=== PATIENT | male | born 1940 | race Caucasian/White ===

== ENCOUNTER 2017-05-17 17:31 | Emergency (ER) | payer MEDICARE, BC ==
--- NOTE | 2017-05-17 18:11 | ED ---
Abdominal Pain HPI - General Chief Complaint: Abdominal Pain Stated Complaint: abd pain Time Seen by Provider: 05/17/17 17:48 Source: patient, RN notes reviewed Mode of arrival: ambulatory Limitations: altered mental status - History of Present Illness Initial Comments: Patient is a 77-year-old male presents to the emergency room for evaluation of abdominal pain. Patient's son is present with patient. Patient's son states the patient hasn't been to a physician about 5 years. Patient's son states the patient has been complaining of abdominal pain for the past few weeks. Patient' s son states that patient does have a very poor diet. Patient's son states that patient sometimes has 5 klondyke bars in one day. Patient denies nausea or vomiting. Patient denies constipation or diarrhea. Patient states he had a normal bowel movement earlier today. Patient denies fevers or chills. Patient denies headache or dizziness. Patient's chest pain or shortness of breath. Patient denies history of abdominal surgeries. Patient denies new foods. Patient denies pain or burning during urination, trouble urinating or blood in urine. - Related Data Home Medications Medication Instructions Recorded Confirmed Aspirin 325 - 650 mg PO Q6H PRN 05/17/17 05/17/17 Calcium Carbonate [Tums] 500 - 1,000 mg PO Q6H PRN 05/17/17 05/17/17 Previous Rx's Medication Instructions Recorded Ondansetron Odt [Zofran Odt] 4 mg PO Q8HR PRN #12 tab 05/17/17 Allergies Allergy/AdvReac Type Severity Reaction Status Date / Time No Known Allergies Allergy Verified 05/17/17 18:33 Review of Systems ROS Statement: Those systems with pertinent positive or pertinent negative responses have been documented in the HPI. ROS Other: All systems not noted in ROS Statement are negative. Past Medical History Past Medical History: Memory Impairment Additional Past Medical History / Comment(s): psoriasis History of Any Multi-Drug Resistant Organisms: None Reported Past Surgical History: No Surgical Hx Reported Past Psychological History: No Psychological Hx Reported Smoking Status: Former smoker Past Alcohol Use History: None Reported Past Drug Use History: None Reported General Exam - General Exam Comments Initial Comments: laying in exam room, no acute distress. Limitations: altered mental status General appearance: alert, in no apparent distress Head exam: Present: atraumatic, normocephalic, normal inspection Eye exam: Present: normal appearance ENT exam: Present: normal exam Neck exam: Present: normal inspection Respiratory exam: Present: normal lung sounds bilaterally. Absent: respiratory distress Cardiovascular Exam: Present: regular rate, normal rhythm, normal heart sounds GI/Abdominal exam: Present: soft, tenderness (mild RLQ/LLQ), normal bowel sounds. Absent: distended, guarding, rebound, rigid Extremities exam: Present: normal inspection Back exam: Present: normal inspection Neurological exam: Present: alert, oriented X3, CN II-XII intact Psychiatric exam: Present: normal affect, normal mood Skin exam: Present: warm, dry, intact, normal color. Absent: rash Course Vital Signs 05/17/17 05/17/17 17:40 18:49 Temperature 97.8 F Pulse Rate 78 68 Respiratory 18 20 Rate Blood Pressure 160/76 170/75 O2 Sat by Pulse 96 98 Oximetry Medical Decision Making - Medical Decision Making patient is 77-year-old male presents to the emergency room for evaluation of abdominal pain. Patient has has this pain for the past few months but slightly worsened today. KUB x-ray significant for constipation. Patient given milk of molasses enema with slight relief of symptoms. Patient will be sent home with magnesium citrate. Patient advised to drink plenty of water. Patient advised to follow-up with a primary care provider. Return parameters discussed. Case discussed Dr. Hoang. - Lab Data Result diagrams: 05/17/17 18:00 05/17/17 18:00 Lab Results 05/17/17 05/17/17 05/17/17 Range/Units 18:00 18:00 18:00 WBC 8.1 (3.8-10.6) k/uL RBC 5.14 (4.30-5.90) m/uL Hgb 9.2 L (13.0-17.5) gm/dL Hct 33.3 L (39.0-53.0) % MCV 64.7 L (80.0-100.0) fL MCH 17.9 L (25.0-35.0) pg MCHC 27.7 L (31.0-37.0) g/dL RDW 18.0 H (11.5-15.5) % Plt Count 319 (150-450) k/uL Neutrophils % 68 % Lymphocytes % 15 % Monocytes % 7 % Eosinophils % 5 % Basophils % 1 % Neutrophils # 5.5 (1.3-7.7) k/uL Lymphocytes # 1.2 (1.0-4.8) k/uL Monocytes # 0.6 (0-1.0) k/uL Eosinophils # 0.4 (0-0.7) k/uL Basophils # 0.1 (0-0.2) k/uL Hypochromasia Marked Poikilocytosis Slight Anisocytosis Slight Microcytosis Marked Sodium 134 L (137-145) mmol/L Potassium 4.3 (3.5-5.1) mmol/L Chloride 102 (98-107) mmol/L Carbon Dioxide 24 (22-30) mmol/L Anion Gap 8 mmol/L BUN 12 (9-20) mg/dL Creatinine 0.78 (0.66-1.25) mg/dL Est GFR (MDRD) Af Amer >60 (>60 ml/min/1.73 sqM) Est GFR (MDRD) Non-Af >60 (>60 ml/min/1.73 sqM) Glucose 102 H (74-99) mg/dL Calcium 8.2 L (8.4-10.2) mg/dL Total Bilirubin 0.4 (0.2-1.3) mg/dL AST 38 (17-59) U/L ALT 28 (21-72) U/L Alkaline Phosphatase 103 (38-126) U/L Total Protein 6.7 (6.3-8.2) g/dL Albumin 3.2 L (3.5-5.0) g/dL Amylase 78 (30-110) U/L Lipase 147 (23-300) U/L Urine Color Urine Appearance (Clear) Urine pH (5.0-8.0) Ur Specific [place] (1.001-1.035) Urine Protein (Negative) Urine Glucose (UA) (Negative) Urine Ketones (Negative) Urine Blood (Negative) Urine Nitrite (Negative) Urine Bilirubin (Negative) Urine Urobilinogen (<2.0) mg/dL Ur Leukocyte Esterase (Negative) 05/17/17 Range/Units 18:30 WBC (3.8-10.6) k/uL RBC (4.30-5.90) m/uL Hgb (13.0-17.5) gm/dL Hct (39.0-53.0) % MCV (80.0-100.0) fL MCH (25.0-35.0) pg MCHC (31.0-37.0) g/dL RDW (11.5-15.5) % Plt Count (150-450) k/uL Neutrophils % % Lymphocytes % % Monocytes % % Eosinophils % % Basophils % % Neutrophils # (1.3-7.7) k/uL Lymphocytes # (1.0-4.8) k/uL Monocytes # (0-1.0) k/uL Eosinophils # (0-0.7) k/uL Basophils # (0-0.2) k/uL Hypochromasia Poikilocytosis Anisocytosis Microcytosis Sodium (137-145) mmol/L Potassium (3.5-5.1) mmol/L Chloride (98-107) mmol/L Carbon Dioxide (22-30) mmol/L Anion Gap mmol/L BUN (9-20) mg/dL Creatinine (0.66-1.25) mg/dL Est GFR (MDRD) Af Amer (>60 ml/min/1.73 sqM) Est GFR (MDRD) Non-Af (>60 ml/min/1.73 sqM) Glucose (74-99) mg/dL Calcium (8.4-10.2) mg/dL Total Bilirubin (0.2-1.3) mg/dL AST (17-59) U/L ALT (21-72) U/L Alkaline Phosphatase (38-126) U/L Total Protein (6.3-8.2) g/dL Albumin (3.5-5.0) g/dL Amylase (30-110) U/L Lipase (23-300) U/L Urine Color Light Yellow Urine Appearance Clear (Clear) Urine pH 6.0 (5.0-8.0) Ur Specific [place] 1.010 (1.001-1.035) Urine Protein Negative (Negative) Urine Glucose (UA) Negative (Negative) Urine Ketones Negative (Negative) Urine Blood Negative (Negative) Urine Nitrite Negative (Negative) Urine Bilirubin Negative (Negative) Urine Urobilinogen <2.0 (<2.0) mg/dL Ur Leukocyte Esterase Negative (Negative) - Radiology Data Radiology results: report reviewed, image reviewed Disposition Clinical Impression: Constipation, Abdominal pain Disposition: HOME SELF-CARE Condition: Good Instructions: Constipation (ED), High Fiber Diet (ED), Abdominal Pain (ED) Additional Instructions: Take magnesium citrate. Drink plenty of water. Take Zofran as needed for nausea. Please follow up with primary care provider in 1-2 days for reevaluation. If any new symptom arises or symptoms worsen, return to ER as soon as possible. Prescriptions: Ondansetron Odt [Zofran Odt] 4 mg PO Q8HR PRN #12 tab PRN Reason: Nausea Referrals: Farideh Ohara MD [STAFF PHYSICIAN] - 1-2 days Time of Disposition: 19:59
[2017-05-17 18:21] LABS: Anisocytosis Slight; Basophils # (A) 0.1 k/uL (0-0.2); Basophils % (A) 1 %; CH 17.4; CHCM 27.2; Eosinophils # (A) 0.4 k/uL (0-0.7); Eosinophils % (A) 5 %; HCT 33.3 % (39.0-53.0); HDW 3.48; HGB 9.2 gm/dL (13.0-17.5); Hypochromasia Marked; Luc # (Auto) 0.34; Luc % (Auto) 4; Lymphocytes # (A) 1.2 k/uL (1.0-4.8); Lymphocytes % (A) 15 %; MCH 17.9 pg (25.0-35.0); MCHC 27.7 g/dL (31.0-37.0); MCV 64.7 fL (80.0-100.0); Mean Platelet Volume 6.9; Microcytosis Marked; Monocytes # (A) 0.6 k/uL (0-1.0); Monocytes % (A) 7 %; Neutrophils # (A) 5.5 k/uL (1.3-7.7); Neutrophils % (A) 68 %; Poikilocytosis Slight; RBC 5.14 m/uL (4.30-5.90); WBC 8.1 k/uL (3.8-10.6); WBC (Perox) 8.07
--- NOTE | 2017-05-17 18:27 | XR ---
EXAMINATION TYPE: XR KUB DATE OF EXAM: 05/17/2017 6:22 PM CLINICAL HISTORY: Right lower quadrant pain. TECHNIQUE: 2 upright KUB images of the abdomen are obtained. COMPARISON: None. FINDINGS: There is some paucity of bowel gas. Visualized gas is noted in nondistended small bowel loo ps. Gas and fecal material is seen in nondistended colon along the periphery. Calcifications scattere d throughout the slightly prominent spleen are noted. There are right infrahilar calcified nodules an d a few calcifications scattered throughout the liver. Findings are consistent with product of old gr anulomatous disease. There is cardiomegaly. No pneumoperitoneum is seen. IMPRESSION: Overall nonspecific but favor nonobstructive bowel gas pattern. Evidence of old granulomatous disease noted.
[2017-05-17 18:34] LABS: ALT 28 U/L (21-72); AST 38 U/L (17-59); Alkaline Phosphatase 103 U/L (38-126); Amylase 78 U/L (30-110); Anion Gap 8 mmol/L; Blood Urea Nitrogen 12 mg/dL (9-20); Calcium 8.2 mg/dL (8.4-10.2); Carbon Dioxide 24 mmol/L (22-30); Chloride 102 mmol/L (98-107); Glucose 102 mg/dL (74-99); Non-African American GFR(MDRD) >60 (>60 ml/min/1.73 sqM); Potassium 4.3 mmol/L (3.5-5.1); Sodium 134 mmol/L (137-145); Total Bilirubin 0.4 mg/dL (0.2-1.3); Total Protein 6.7 g/dL (6.3-8.2)
[2017-05-17 19:16] LABS: Appearance,Urine Clear (Clear); Bilirubin,Urine Negative (Negative); Glucose,Urine (UA) Negative (Negative); Ketones,Urine Negative (Negative); Leukocyte Esterase,Urine Negative (Negative); Nitrite,Urine Negative (Negative); Protein,Urine Negative (Negative); UA Billing (MACRO vs. MICRO) CHEM; Urobilinogen,Urine <2.0 mg/dL (<2.0)
[2017-05-17] MEDS ORDERED: ONDANSETRON 4 MG/2 ML VIAL IVP STA (19:47)
[2017-05-17] MEDS ORDERED: MAGNESIUM CITRATE 296 ML BOTTLE PO ONE (19:58)
[2017-05-17 20:21] VITALS: BP 172/70; PULSE 74; RESP 18; TEMP 98
== END 2017-05-17 20:20 | disposition home or self-care (01) ==
LOC: EC 17:31
DX: K59.00 Constipation, unspecified (principal); R10.31 Right lower quadrant pain; R10.32 Left lower quadrant pain; Z87.891 Personal history of nicotine dependence
CPT/HCPCS: 36415; 80053; 82150; 83690; 85025; 81003; 74000; 99284; 96374; G0103; J2405

== ENCOUNTER → 2017-06-06 | Outpatient (CLI) | payer MEDICARE, BC ==
[2017-06-06 15:28] LABS: Anisocytosis Slight; Basophils % (A) 0 %; CH 17.7; Eosinophils # (A) 0.2 k/uL (0-0.7); Eosinophils % (A) 4 %; HCT 34.2 % (39.0-53.0); HDW 3.38; HGB 9.4 gm/dL (13.0-17.5); Hypochromasia Marked; Luc # (Auto) 0.27; Luc % (Auto) 4; Lymphocytes # (A) 1.3 k/uL (1.0-4.8); Lymphocytes % (A) 19 %; MCH 18.2 pg (25.0-35.0); MCHC 27.5 g/dL (31.0-37.0); MCV 66.2 fL (80.0-100.0); Mean Platelet Volume 6.7; Microcytosis Marked; Monocytes # (A) 0.5 k/uL (0-1.0); Monocytes % (A) 8 %; Neutrophils # (A) 4.5 k/uL (1.3-7.7); Neutrophils % (A) 66 %; RBC 5.17 m/uL (4.30-5.90); WBC 6.9 k/uL (3.8-10.6); WBC (Perox) 6.54
[2017-06-06 15:46] LABS: ALT 26 U/L (21-72); AST 35 U/L (17-59); Alkaline Phosphatase 107 U/L (38-126); Anion Gap 11 mmol/L; Blood Urea Nitrogen 12 mg/dL (9-20); Calcium 8.6 mg/dL (8.4-10.2); Carbon Dioxide 25 mmol/L (22-30); Chloride 102 mmol/L (98-107); Glucose 129 mg/dL (74-99); Iron 18 ug/dL (49-181); Non-African American GFR(MDRD) >60 (>60 ml/min/1.73 sqM); Potassium 4.6 mmol/L (3.5-5.1); Sodium 138 mmol/L (137-145); Total Bilirubin 0.4 mg/dL (0.2-1.3); Total Protein 6.9 g/dL (6.3-8.2)
[2017-06-06 15:55] LABS: % Iron Saturation 3.9 % (20-50); Total Iron Binding Capacity 459 ug/dL (261-462)
--- NOTE | 2017-06-06 17:06 | CT ---
EXAMINATION TYPE: CT abdomen pelvis w con DATE OF EXAM: 06/06/2017 COMPARISON: NONE HISTORY: Patient complains of right groin pain and swollen scrotum. CT DLP: 831.9 mGycm Automated exposure control for dose reduction was used. TECHNIQUE: Helical acquisition of images was performed from the lung bases through the pelvis. CONTRAST: Performed with Oral Contrast and with IV Contrast, patient injected with 100 mL of Omnipaque 300. FINDINGS: There is coarse interstitial patchy infiltrate at the lung bases. Heart is enlarged. There is a dense ly calcified granulomata at the right pulmonary hilum. There is no pleural effusion. There are calcif ied multiple splenic granulomata. There are numerous small calcified hepatic granulomata. There is no sign of pancreatic mass. Bile alannah ts are not dilated. There are small calcified gallstones. There is no adrenal mass. Kidneys show satisfactory contrast opacification. There is no hydronephrosi s. There is no retroperitoneal adenopathy. Abdominal aorta is atheromatous. There is no ascites. Appe ndix appears normal. I see no intestinal wall thickening. There is a right inguinal hernia that conta ins some multiple small bowel loops. There are hernia extends well into the scrotum. There is no sign of a bowel obstruction. The hernia opening is 3.5 cm. Bladder distends smoothly. I see no pelvic mas s. I see no bony destructive process. IMPRESSION: EXTENSIVE HEALED GRANULOMATOUS DISEASE. CARDIOMEGALY. 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 I DO NOT SEE PLEURAL FLUID TO SUGGEST HEART FAILURE. LARGE RIGHT INGUINAL HERNIA CONTAINING SMALL BOWEL. NO EVIDENCE OF BOWEL OBSTRUCTION. CHOLELITHIASIS. NO SIGN OF APPENDICITIS.
== END | disposition home or self-care (01) ==
LOC: RADCTMAIN 14:46
PROVIDERS: ATTEND Surgery
DX: I51.7 Cardiomegaly (principal); K40.90 Unilateral inguinal hernia, without obstruction or gangrene, not specified as recurrent; R91.8 Other nonspecific abnormal finding of lung field; K80.20 Calculus of gallbladder without cholecystitis without obstruction
CPT/HCPCS: 80053; 83540; 83550; 85025; 74177; 36415; Q9967

== ENCOUNTER → 2017-06-06 | Outpatient (CLI) | payer MEDICARE, BC | LOC: LABWHC1 12:48 | PROVIDERS: ATTEND Internal Medicine | DX: Z53.9 Procedure and treatment not carried out, unspecified reason (principal) ==

== ENCOUNTER → 2017-06-09 | Outpatient (CLI) | payer MEDICARE, BC ==
--- NOTE | 2017-06-09 17:13 | P.STRESS ---
- Stress Test Note Stress Test Results/Findings: Exam Performed: stress test Exam Date: 06/09/17 Reason for Exam: Pre op Height: 5 ft 10 in Weight: 81.647 kg Protocol: Jose Miguel Stage: 1 Duration of Exercise: 3:09 Resting Heart Rate: 60 Resting Blood Pressure: 162/72 Maximum Achieved Heart Rate: 119 Maximum Achieved Blood Pressure: 205/72 85% PMHR: 121 100% PMHR: 142 METS: 4.6 Technologist Comment: Stress Test Results/Findings: Resting EKG shows a normal sinus rhythm with normal NJ interval and QRS duration and normal ST-T abuse. This segment depression suggestive ischemia is noted. Isolated PVCs and occasional ventricular couplets were noted. And did not complain of any anginal pain during the test. Final impression the stress electrocardiogram is not suggestive ischemia. Patient's exercise tolerance is average. Occasional PVCs and occasional ventricular couplets were noted. Patient did not complain of any anginal pain during the test.
--- NOTE | 2017-06-10 07:52 | EST ---
Stress Test Results/Findings: Exam Performed: stress test Exam Date: 06/09/17 Reason for Exam: Pre op Height: 5 ft 10 in Weight: 81.647 kg Protocol: Jose Miguel Stage: 1 Duration of Exercise: 3:09 Resting Heart Rate: 60 Resting Blood Pressure: 162/72 Maximum Achieved Heart Rate: 119 Maximum Achieved Blood Pressure: 205/72 85% PMHR: 121 100% PMHR: 142 METS: 4.6 Technologist Comment: Stress Test Results/Findings: Resting EKG shows a normal sinus rhythm with normal RI interval and QRS duration and normal ST-T abuse. This segment depression suggestive ischemia is noted. Isolated PVCs and occasional ventricular couplets were noted. And did not complain of any anginal pain during the test. Final impression the stress electrocardiogram is not suggestive ischemia. Patient's exercise tolerance is average. Occasional PVCs and occasional ventricular couplets were noted. Patient did not complain of any anginal pain during the test. KAREN
== END ==
LOC: RADNMMAIN 11:03
PROVIDERS: ATTEND Internal Medicine
DX: Z01.810 Encounter for preprocedural cardiovascular examination (principal)
CPT/HCPCS: 93017

== ENCOUNTER 2017-11-20 20:35 | Inpatient (IN) | payer MEDICARE, BC ==
[2017-11-20] MEDS ORDERED: RX INFO: IV CONTRAST WAS GIVEN 1 EACH MISC MISCELLANE PRN (21:39)
[2017-11-20 22:02] LABS: Anisocytosis Moderate; Basophils % (A) 0 %; Eosinophils # (A) 0.2 k/uL (0-0.7); Eosinophils % (A) 1 %; HCT 42.7 % (39.0-53.0); HGB 13.1 gm/dL (13.0-17.5); Hypochromasia Moderate; Lymphocytes # (A) 0.7 k/uL (1.0-4.8); Lymphocytes % (A) 6 %; MCH 23.2 pg (25.0-35.0); MCHC 30.6 g/dL (31.0-37.0); Mean Platelet Volume 7.9; Microcytosis Moderate; Monocytes # (A) 0.5 k/uL (0-1.0); Monocytes % (A) 4 %; Neutrophils # (A) 10.6 k/uL (1.3-7.7); Neutrophils % (A) 87 %; Platelet Count 225 k/uL (150-450); RBC 5.62 m/uL (4.30-5.90); WBC 12.2 k/uL (3.8-10.6)
[2017-11-20 22:11] LABS: Partial Thromboplastin Time 22.7 sec (22.0-30.0); Prothrombin Time 9.8 sec (9.0-12.0)
[2017-11-20 22:20] LABS: ALT 37 U/L (21-72); AST 32 U/L (17-59); Albumin 3.3 g/dL (3.5-5.0); Alkaline Phosphatase 104 U/L (38-126); Amylase 91 U/L (30-110); Anion Gap 10 mmol/L; Blood Urea Nitrogen 12 mg/dL (9-20); Calcium 8.9 mg/dL (8.4-10.2); Carbon Dioxide 25 mmol/L (22-30); Chloride 103 mmol/L (98-107); Glucose 142 mg/dL (74-99); Lipase 83 U/L (23-300); Potassium 4.3 mmol/L (3.5-5.1); Sodium 138 mmol/L (137-145); Total Bilirubin 0.3 mg/dL (0.2-1.3); Total Protein 6.8 g/dL (6.3-8.2)
--- NOTE | 2017-11-20 22:37 | ED ---
Abdominal Pain HPI - General Chief Complaint: Abdominal Pain Stated Complaint: Abd Pain Time Seen by Provider: 11/20/17 21:32 Source: patient, family, RN notes reviewed, old records reviewed Mode of arrival: ambulatory Limitations: no limitations - History of Present Illness Initial Comments: 69-year-old male presents today chief complaint of lower right lower quadrant abdominal pain. He has history of a large hernia. He reports he started to have an onset of pain this evening after he was eating his food. Patient states that he's had normal bowel movements and normal urination. He was supposed to have the hernia repaired by Dr. Mcgraw. Patient son reports that he became concerned about this with his primary care physician and he ended up canceling the surgery. Patient has a history of memory impairment. - Related Data Home Medications Medication Instructions Recorded Confirmed Latanoprost [Xalatan 0.005%] 1 drop BOTH EYES HS 11/20/17 11/20/17 Allergies Allergy/AdvReac Type Severity Reaction Status Date / Time No Known Allergies Allergy Verified 11/20/17 22:09 Review of Systems ROS Statement: Those systems with pertinent positive or pertinent negative responses have been documented in the HPI. ROS Other: All systems not noted in ROS Statement are negative. Past Medical History Past Medical History: COPD, Memory Impairment Additional Past Medical History / Comment(s): psoriasis,anemia History of Any Multi-Drug Resistant Organisms: None Reported Past Surgical History: No Surgical Hx Reported Past Psychological History: No Psychological Hx Reported Smoking Status: Former smoker Past Alcohol Use History: None Reported Past Drug Use History: None Reported General Exam - General Exam Comments Initial Comments: His is a 77-year-old male. No distress. Limitations: no limitations General appearance: alert, in no apparent distress Head exam: Present: atraumatic, normocephalic, normal inspection Eye exam: Present: normal appearance, PERRL, EOMI. Absent: scleral icterus, conjunctival injection, periorbital swelling ENT exam: Present: normal exam, mucous membranes moist Neck exam: Present: normal inspection. Absent: tenderness, meningismus, lymphadenopathy Respiratory exam: Present: normal lung sounds bilaterally. Absent: respiratory distress, wheezes, rales, rhonchi, stridor Cardiovascular Exam: Present: regular rate, normal rhythm, normal heart sounds. Absent: systolic murmur, diastolic murmur, rubs, gallop, clicks GI/Abdominal exam: Present: soft, tenderness (patient has tenderness over the right lower quadrant, is very large hernia noted in the right lower quadrant suprapubic area.), normal bowel sounds, hernia. Absent: distended, guarding, rebound, rigid Extremities exam: Present: normal inspection, full ROM, normal capillary refill. Absent: tenderness, pedal edema, joint swelling, calf tenderness Back exam: Present: normal inspection Neurological exam: Present: alert, oriented X3, CN II-XII intact Psychiatric exam: Present: normal affect, normal mood Skin exam: Present: warm, dry, intact, normal color. Absent: rash Course Vital Signs 11/20/17 20:58 Temperature 97.0 F L Pulse Rate 66 Respiratory 16 Rate Blood Pressure 126/65 O2 Sat by Pulse 96 Oximetry Medical Decision Making - Medical Decision Making This is a 77-year-old male presents today chief complaint of lower abdominal pain. Patient has a history of a severe hernia and his rate or quadrant. Uterus reports is most to have this repaired a few months ago but then backed out of the surgery. Patient reports that he is increasingly worse for the past few hours. Patient does have a very large hernia. Patient is given IV fluids labwork obtained. Patient's given a CT. CT shows evidence of an incarcerated hernia with this mechanical small bowel obstruction. Patient will remain nothing by mouth at this time. Patient will be started on maintenance fluids. Patient's case is discussed with Dr. Larson. He discussed this with the on-call surgeon Dr. Borges. Odalis the patient to Dr. Borges with consult to medicine. - Lab Data Result diagrams: 11/20/17 21:51 11/20/17 21:51 Lab Results 11/20/17 11/20/17 11/20/17 Range/Units 21:51 21:51 21:51 WBC 12.2 H (3.8-10.6) k/uL RBC 5.62 (4.30-5.90) m/uL Hgb 13.1 (13.0-17.5) gm/dL Hct 42.7 (39.0-53.0) % MCV 76.0 L (80.0-100.0) fL MCH 23.2 L (25.0-35.0) pg MCHC 30.6 L (31.0-37.0) g/dL RDW 21.0 H (11.5-15.5) % Plt Count 225 (150-450) k/uL Neutrophils % 87 % Lymphocytes % 6 % Monocytes % 4 % Eosinophils % 1 % Basophils % 0 % Neutrophils # 10.6 H (1.3-7.7) k/uL Lymphocytes # 0.7 L (1.0-4.8) k/uL Monocytes # 0.5 (0-1.0) k/uL Eosinophils # 0.2 (0-0.7) k/uL Basophils # 0.0 (0-0.2) k/uL Hypochromasia Moderate Anisocytosis Moderate Microcytosis Moderate PT (9.0-12.0) sec INR (<1.2) APTT (22.0-30.0) sec Sodium 138 (137-145) mmol/L Potassium 4.3 (3.5-5.1) mmol/L Chloride 103 (98-107) mmol/L Carbon Dioxide 25 (22-30) mmol/L Anion Gap 10 mmol/L BUN 12 (9-20) mg/dL Creatinine 0.80 (0.66-1.25) mg/dL Est GFR (MDRD) Af Amer >60 (>60 ml/min/1.73 sqM) Est GFR (MDRD) Non-Af >60 (>60 ml/min/1.73 sqM) Glucose 142 H (74-99) mg/dL Plasma Lactic Acid Stuart 1.1 (0.7-2.0) mmol/L Calcium 8.9 (8.4-10.2) mg/dL Total Bilirubin 0.3 (0.2-1.3) mg/dL AST 32 (17-59) U/L ALT 37 (21-72) U/L Alkaline Phosphatase 104 (38-126) U/L Total Protein 6.8 (6.3-8.2) g/dL Albumin 3.3 L (3.5-5.0) g/dL Amylase 91 (30-110) U/L Lipase 83 (23-300) U/L Urine Color Urine Appearance (Clear) Urine pH (5.0-8.0) Ur Specific [place] (1.001-1.035) Urine Protein (Negative) Urine Glucose (UA) (Negative) Urine Ketones (Negative) Urine Blood (Negative) Urine Nitrite (Negative) Urine Bilirubin (Negative) Urine Urobilinogen (<2.0) mg/dL Ur Leukocyte Esterase (Negative) 11/20/17 11/20/17 Range/Units 21:51 22:30 WBC (3.8-10.6) k/uL RBC (4.30-5.90) m/uL Hgb (13.0-17.5) gm/dL Hct (39.0-53.0) % MCV (80.0-100.0) fL MCH (25.0-35.0) pg MCHC (31.0-37.0) g/dL RDW (11.5-15.5) % Plt Count (150-450) k/uL Neutrophils % % Lymphocytes % % Monocytes % % Eosinophils % % Basophils % % Neutrophils # (1.3-7.7) k/uL Lymphocytes # (1.0-4.8) k/uL Monocytes # (0-1.0) k/uL Eosinophils # (0-0.7) k/uL Basophils # (0-0.2) k/uL Hypochromasia Anisocytosis Microcytosis PT 9.8 (9.0-12.0) sec INR 1.0 (<1.2) APTT 22.7 (22.0-30.0) sec Sodium (137-145) mmol/L Potassium (3.5-5.1) mmol/L Chloride (98-107) mmol/L Carbon Dioxide (22-30) mmol/L Anion Gap mmol/L BUN (9-20) mg/dL Creatinine (0.66-1.25) mg/dL Est GFR (MDRD) Af Amer (>60 ml/min/1.73 sqM) Est GFR (MDRD) Non-Af (>60 ml/min/1.73 sqM) Glucose (74-99) mg/dL Plasma Lactic Acid [place] (0.7-2.0) mmol/L Calcium (8.4-10.2) mg/dL Total Bilirubin (0.2-1.3) mg/dL AST (17-59) U/L ALT (21-72) U/L Alkaline Phosphatase (38-126) U/L Total Protein (6.3-8.2) g/dL Albumin (3.5-5.0) g/dL Amylase (30-110) U/L Lipase (23-300) U/L Urine Color Yellow Urine Appearance Clear (Clear) Urine pH 5.5 (5.0-8.0) Ur Specific [place] 1.012 (1.001-1.035) Urine Protein Negative (Negative) Urine Glucose (UA) Negative (Negative) Urine Ketones 1+ H (Negative) Urine Blood Negative (Negative) Urine Nitrite Negative (Negative) Urine Bilirubin Negative (Negative) Urine Urobilinogen <2.0 (<2.0) mg/dL Ur Leukocyte Esterase Negative (Negative) - Radiology Data Radiology results: report reviewed There are bilateral lower lobe pulmonary infiltrates that are increased compared to last exam. There is basilar pulmonary interstitial fibrosis. Cardiomegaly noted. There is an incarcerated right sided scrotal hernia containing small bowel. There is evidence of a mechanical small bowel obstruction related to the hernia. The obstruction is new compared to old computed tomography scan. Hernia size is slightly increased. Disposition Clinical Impression: Small bowel obstruction, Incarcerated hernia Disposition: ADMITTED IP TO THIS [facility] Condition: Good Referrals: Altaf Silva MD [Primary Care Provider] - 1-2 days Time of Disposition: 23:41
[2017-11-20 22:39] LABS: Appearance,Urine Clear (Clear); Bilirubin,Urine Negative (Negative); Blood,Urine Negative (Negative); Color,Urine Yellow; Glucose,Urine (UA) Negative (Negative); Ketones,Urine 1+ (Negative); Leukocyte Esterase,Urine Negative (Negative); Nitrite,Urine Negative (Negative); PH, Urine 5.5 (5.0-8.0); Protein,Urine Negative (Negative); Specific Gravity,Urine 1.012 (1.001-1.035); Urobilinogen,Urine <2.0 mg/dL (<2.0)
--- NOTE | 2017-11-20 23:17 | CT ---
EXAMINATION TYPE: CT abdomen pelvis w con DATE OF EXAM: 11/20/2017 COMPARISON: 06/06/2017 HISTORY: Abd pain with nausea and vomiting. CT DLP: 878.1 mGycm Automated exposure control for dose reduction was used. TECHNIQUE: Helical acquisition of images was performed from the lung bases through the pelvis. CONTRAST: Performed without Oral Contrast and with IV Contrast, patient injected with 100ml mL of Omnipaque 300 . FINDINGS: There is patchy infiltrate at the posterior lung bases. Heart is enlarged. There is no pleural effusi on. There are multiple calcified splenic granulomata. Liver shows no focal defect. There are calcified ga llstones at the gallbladder neck. Bile ducts are not dilated. There is no sign of a pancreatic mass. There is no adrenal mass. Kidneys show satisfactory contrast opacification. There is no hydronephrosi s. There is no retroperitoneal adenopathy. There is no ascites. There are multiple dilated small hellen l loops in the lower abdomen. There is a large right-sided incarcerated scrotal hernia that contains dilated small bowel. The lower extent of the hernia is a not demonstrated on this exam. The bladder d istends smoothly. Small bowel measures up to 3.5 cm. I see no bony destructive process. The terminal ileum has normal diameter. IMPRESSION: THERE ARE BILATERAL LOWER LOBE PULMONARY INFILTRATES THAT ARE INCREASED COMPARED TO LAST EXAM. THERE IS BASILAR PULMONARY INTERSTITIAL FIBROSIS. CARDIOMEGALY. THERE IS INCARCERATED RIGHT SIDE SCROTAL HERNIA THAT CONTAINS SMALL BOWEL. THERE IS EVIDENCE OF A MEC HANICAL SMALL BOWEL OBSTRUCTION RELATED TO THE HERNIA. THE OBSTRUCTION IS NEW COMPARED TO OLD CT SCAN . THE HERNIA SIZE IS SLIGHTLY INCREASED.
[2017-11-20] MEDS ORDERED: SODIUM CHLORIDE 0.9% 1,000 ML IV ONE (23:26)
[2017-11-20] MEDS ORDERED: ONDANSETRON 4 MG/2 ML VIAL IVP PRN (23:42)
[2017-11-20] MEDS ORDERED: MORPHINE SULFATE 5 MG/ML SYRINGE IV PRN (23:42)
[2017-11-20] MEDS ORDERED: NALOXONE 0.4 MG/ML 1 ML VIAL IV PRN (23:42)
[2017-11-20] MEDS ORDERED: ACETAMINOPHEN TAB 325 MG TAB PO PRN (23:42)
[2017-11-20] MEDS ORDERED: IBUPROFEN 400 MG TAB PO PRN (23:42)
[2017-11-21] MEDS: HYDROmorphone 0.5 MG/0.5 ML SYRINGE IVP PRN ×4 (00:19→20:10)
[2017-11-21] MEDS: SODIUM CHLORIDE 0.9% 1,000 ML IV SCH ×3 (02:04→19:50)
--- NOTE | 2017-11-21 08:10 | P.CONS ---
History of Present Illness - Reason for Consult Consult date: 11/21/17 small bowel obstruction Requesting physician: Tylor Borges - Chief Complaint abdominal pain - History of Present Illness Is a 77-year-old male with past medical history of glaucoma, cataracts , anemia, and psoriasis who presented to the emergency department with complaints of abdominal pain. In the ER he underwent an extensive evaluation. His initial vital signs are found to be within normal limits. CT of the abdomen and pelvis showed small bowel obstruction with transition point within a right scrotal hernia as well as bilateral basilar infiltrate. His laboratory analysis showed a slightly low protein and albumin at 3.3. He has microcytic but his hemoglobin is normal. Dr. Borges was contacted and he was admitted for incarcerated hernia. We have asked evaluate him for surgical risk stratification if he follows with Dr. Silva as an outpatient. Patient seen and examined at bedside. He is a poor historian due to chronic memory impairment his son is present at bedside and answers or verifies questions. He had sudden onset of pain in his right lower abdomen and scrotal area yesterday. He continued to complain of it throughout the day which is unlike him and therefore his son brought him in for evaluation. He did not have any nausea, vomiting, diarrhea, or constipation. He has had intermittent pain in this area, but it usually resolved by the morning. He has otherwise been in his typical state of health. He has not had any recent changes in medications. The first time he saw was in June of this year when the hernia was found. Originally he had a planned procedure for laparoscopic hernia repair, but he has not followed through. He did undergo a preoperative stress test on 06/09/2017 which was negative for signs of ischemia. Son reports that he goes and walks the jail daily. He also walks around there [address] [place] home in the summertime. He never complains of shortness of breath, or chest pain. He has not had any chest pain within the last year. He has had no syncopal episodes. He is able to walk up 3-4 steps without problems. They do not have a full flight of stairs in the house therefore they're unable to accurately see if he could walk up a flight of stairs are not without shortness of breath. He has not recently complained of any chest pain, SOB, coughs, colds, flus, diarrhea, constipation, or dysuria per the son. Review of Systems As able to obtain listed in HPI. Patient is a poor historian and unable to obtain full review of systems as patient cannot recall symptoms. Past Medical History Past Medical History: Memory Impairment Additional Past Medical History / Comment(s): psoriasis,anemia, glaucoma History of Any Multi-Drug Resistant Organisms: None Reported Additional Past Surgical History / Comment(s): bilateral cataracts, colonoscopy Past Anesthesia/Blood Transfusion Reactions: No Reported Reaction Past Psychological History: No Psychological Hx Reported Smoking Status: Former smoker Past Alcohol Use History: None Reported Past Drug Use History: None Reported - Past Family History Mother Additional Family Medical History / Comment(s): from old age at 93 Father Additional Family Medical History / Comment(s): mouth cancer Medications and Allergies Home Medications Medication Instructions Recorded Confirmed Type Latanoprost [Xalatan 0.005%] 1 drop BOTH EYES HS 11/20/17 11/20/17 History Allergies Allergy/AdvReac Type Severity Reaction Status Date / Time No Known Allergies Allergy Verified 11/20/17 22:09 Physical Exam Osteopathic Statement: *. No significant issues noted on an osteopathic structural exam other than those noted in the History and Physical/Consult. Vitals: Vital Signs Temp Pulse Pulse Resp BP BP Pulse Ox 11/21/17 01:03 97.7 F 67 20 148/78 11/21/17 00:14 63 20 138/65 98 11/20/17 20:58 97.0 F L 66 16 126/65 96 Intake and Output 11/20/17 11/21/17 11/21/17 22:59 06:59 14:59 Intake Total 600 Balance 600 Intake: Amount of Fluid Infused ( 500 ml) Intake, IV Titration 100 Amount Sodium Chloride 0.9% 1, 100 000 ml @ 100 mls/hr IV . Q10H [facility] Rx#:[id number] Other: Voiding Method Toilet # Voids 2 Weight 74.843 kg General: non toxic, no distress, appears at stated age, normal weight Derm: no unusual rashes/lesions no unusual ecchymoses, warm, dry Head: atraumatic, normocephalic, symmetric Eyes: EOMI, no lid lag, anicteric sclera, pupils equal round reactive to light ENT: Nose and ears atraumatic, no thrush, no pharyngeal erythema Neck: No thyromegaly, no cervical lymphadenopathy, trachea midline, supple Mouth: no lip lesion, mucus membranes moist Cardiovascular: S1S2 reg, no murmur, positive posterior tibial pulse bilateral, no edema, capillary refill less than 2 seconds Lungs: CTA bilateral, no rhonchi, no rales , no accessory muscle use Abdominal: soft, nontender to palpation, no guarding, no appreciable organomegaly, normal bowel sounds, large hernia in right scrotum unable to fully reduce, not painful Ext: no gross muscle atrophy, muscle strength 5 out of 5 in all 4 extremities grossly, no contractures, Neuro: CN II-XI grossly intact, light touch intact all 4 extremities, finger to nose within normal limits, Psych: Alert, oriented to hospital, appropriate affect Results CBC & Chem 7: 11/20/17 21:51 11/20/17 21:51 Labs: Abnormal Lab Results - Last 24 Hours (Table) 11/20/17 11/20/17 11/20/17 Range/Units 21:51 21:51 22:30 WBC 12.2 H (3.8-10.6) k/uL MCV 76.0 L (80.0-100.0) fL MCH 23.2 L (25.0-35.0) pg MCHC 30.6 L (31.0-37.0) g/dL RDW 21.0 H (11.5-15.5) % Neutrophils # 10.6 H (1.3-7.7) k/uL Lymphocytes # 0.7 L (1.0-4.8) k/uL Glucose 142 H (74-99) mg/dL Albumin 3.3 L (3.5-5.0) g/dL Urine Ketones 1+ H (Negative) Comments: EKG reviewed-normal sinus rhythm at a rate of 69, normal intervals, normal access, no significant ST-T wave changes Assessment and Plan Assessment: Incarcerated right inguinal hernia with resulting small bowel obstruction - NPO - IVF - Anticipate surgical repair - Pain control - EKG reviewed and normal - Patient is at an elevated risk of post-op delirium secondary to chronic memory problems. Dementia - safe and supportive environment - frequent reorientation Glaucoma - continue home eye drop Mild protein calorie malnutrition - dietitian eval after surgery. Patient is at low cardiac risk for this non cardiac procedure. No additional preoperative testing needed. Does have an increased risk of post-op delirium. He did have an exercise stress test on 06/09/17 which was not suggestive of ischemia. DVT prophylaxis: SCDs, anticipate heparin after surgery Discussed with: Patient, nursing, family Anticipated discharge: home with home health A total of 60 minutes was spent on the care of this complex patient more than 50 % of the time was spent in counseling and care coordination.
[2017-11-21] MEDS ORDERED: LACTATED RINGERS 1,000 ML IV ONE ×2 (08:43→11:43)
[2017-11-21] MEDS: HEPARIN SODIUM,PORCINE 5,000 UNIT/ML 1 ML VIAL SQ SCH ×4 (08:54→23:44)
[2017-11-21] MEDS: PANTOPRAZOLE 40 MG/10 ML VIAL IV SCH (08:54)
[2017-11-21] MEDS ORDERED: PIPERACILLIN-TAZOBACTAM 3.375 GM in DEXTROSE/WATER 1 50ML.BAG IVPB STA (10:37)
--- NOTE | 2017-11-21 10:42 | P.GSHP ---
History of Present Illness H&P Date: 11/21/17 Chief Complaint: Incarcerated right inguinal hernia 77-year-old male with a history of large right inguinal hernia. He apparently was previously scheduled for operative repair with Dr. Mcgraw but canceled. He went to the ER last night because of increased pain and swelling in the right groin. The hernia was nonreducible. CAT scan showed small bowel loops within the hernia itself. Report suggests that obstructive pattern was seen. The patient is somewhat confused. His son is present here today. White blood cell count slightly elevated at 12.2. - Review of Systems Comment: The patient denies any acute changes in vision or hearing, no dysphagia or odynophagia, no chest pain or shortness of breath, no dysuria or hematuria, no headache, no runny nose, no rectal bleeding or melena, no unexplained weight loss Past Medical History Past Medical History: Memory Impairment Additional Past Medical History / Comment(s): psoriasis,anemia, glaucoma History of Any Multi-Drug Resistant Organisms: None Reported Past Surgical History: No Surgical Hx Reported Additional Past Surgical History / Comment(s): bilateral cataracts, colonoscopy Past Anesthesia/Blood Transfusion Reactions: No Reported Reaction Past Psychological History: No Psychological Hx Reported Smoking Status: Former smoker Past Alcohol Use History: None Reported Past Drug Use History: None Reported - Past Family History Mother Additional Family Medical History / Comment(s): from old age at 93 Father Additional Family Medical History / Comment(s): mouth cancer Medications and Allergies Home Medications Medication Instructions Recorded Confirmed Type Latanoprost [Xalatan 0.005%] 1 drop BOTH EYES HS 11/20/17 11/20/17 History Allergies Allergy/AdvReac Type Severity Reaction Status Date / Time No Known Allergies Allergy Verified 11/20/17 22:09 Surgical - Exam Vital Signs Temp Pulse Resp BP Pulse Ox 97.0 F L 66 16 126/65 96 11/20/17 20:58 11/20/17 20:58 11/20/17 20:58 11/20/17 20:58 11/20/17 20:58 Physical exam: General: Well-developed, well-nourished HEENT: Normocephalic, sclerae nonicteric Abdomen: Nontender, nondistended, large incarcerated right scrotal hernia difficult to palpate right testicle Extremities: No edema Neuro: Alert and slightly confused Results - Labs 11/20/17 21:51 11/20/17 21:51 Abnormal Lab Results - Last 24 Hours (Table) 11/20/17 11/20/17 11/20/17 Range/Units 21:51 21:51 22:30 WBC 12.2 H (3.8-10.6) k/uL MCV 76.0 L (80.0-100.0) fL MCH 23.2 L (25.0-35.0) pg MCHC 30.6 L (31.0-37.0) g/dL RDW 21.0 H (11.5-15.5) % Neutrophils # 10.6 H (1.3-7.7) k/uL Lymphocytes # 0.7 L (1.0-4.8) k/uL Glucose 142 H (74-99) mg/dL Albumin 3.3 L (3.5-5.0) g/dL Urine Ketones 1+ H (Negative) Diabetes panel 11/20/17 Range/Units 21:51 Sodium 138 (137-145) mmol/L Potassium 4.3 (3.5-5.1) mmol/L Chloride 103 (98-107) mmol/L Carbon Dioxide 25 (22-30) mmol/L BUN 12 (9-20) mg/dL Creatinine 0.80 (0.66-1.25) mg/dL Glucose 142 H (74-99) mg/dL Calcium 8.9 (8.4-10.2) mg/dL AST 32 (17-59) U/L ALT 37 (21-72) U/L Alkaline Phosphatase 104 (38-126) U/L Total Protein 6.8 (6.3-8.2) g/dL Albumin 3.3 L (3.5-5.0) g/dL Calcium panel 11/20/17 Range/Units 21:51 Calcium 8.9 (8.4-10.2) mg/dL Albumin 3.3 L (3.5-5.0) g/dL Pituitary panel 11/20/17 Range/Units 21:51 Sodium 138 (137-145) mmol/L Potassium 4.3 (3.5-5.1) mmol/L Chloride 103 (98-107) mmol/L Carbon Dioxide 25 (22-30) mmol/L BUN 12 (9-20) mg/dL Creatinine 0.80 (0.66-1.25) mg/dL Glucose 142 H (74-99) mg/dL Calcium 8.9 (8.4-10.2) mg/dL Adrenal panel 11/20/17 Range/Units 21:51 Sodium 138 (137-145) mmol/L Potassium 4.3 (3.5-5.1) mmol/L Chloride 103 (98-107) mmol/L Carbon Dioxide 25 (22-30) mmol/L BUN 12 (9-20) mg/dL Creatinine 0.80 (0.66-1.25) mg/dL Glucose 142 H (74-99) mg/dL Calcium 8.9 (8.4-10.2) mg/dL Total Bilirubin 0.3 (0.2-1.3) mg/dL AST 32 (17-59) U/L ALT 37 (21-72) U/L Alkaline Phosphatase 104 (38-126) U/L Total Protein 6.8 (6.3-8.2) g/dL Albumin 3.3 L (3.5-5.0) g/dL Assessment and Plan (1) Incarcerated hernia Narrative/Plan: Will proceed with repair incarcerated right inguinal hernia. Possible need for laparotomy, bowel resection, and right orchiectomy was discussed. Potential increased risk of mesh infection because of the incarcerated nature with bowel obstruction was discussed. Additionally risks of bleeding, infection, recurrence, bladder and bowel injury, numbness, nerve injury were discussed with the patient. The patient and his son understands and wishes to proceed. Current Visit: Yes Status: Acute Code(s): K46.0 - UNSP ABDOMINAL HERNIA WITH OBSTRUCTION, WITHOUT GANGRENE SNOMED Code(s): 67455589
[2017-11-21] MEDS ORDERED: SUCCINYLCHOLINE CHLORIDE 100 MG/5 ML SYR IV ONE (10:57)
[2017-11-21] MEDS ORDERED: PROPOFOL 10 MG/ML 20 ML VIAL IV ONE (10:57)
[2017-11-21] MEDS ORDERED: fentaNYL (PF) 50 MCG/ML 2 ML AMP ONE (10:57)
[2017-11-21] MEDS ORDERED: LIDOCAINE 1% INJ 10MG/ML (20 ML MDV) ONE (10:57)
[2017-11-21] MEDS ORDERED: ROCURONIUM BROMIDE 10 MG/ML 10 ML VIAL IV ONE (10:57)
[2017-11-21] MEDS ORDERED: GLYCOPYRROLATE 0.2 MG/ML 2 ML VIAL ONE (10:57)
[2017-11-21] MEDS ORDERED: NEOSTIGMINE 1 MG/ML 10 ML VIAL ONE (10:57)
--- NOTE | 2017-11-21 12:38 | P.OP ---
Date of Procedure: 11/21/17 Procedure(s) Performed: PREOPERATIVE DIAGNOSIS: Incarcerated right inguinal hernia POSTOPERATIVE DIAGNOSIS: Same PROCEDURE: Incarcerated right inguinal hernia repair with mesh SURGEON: Katerina EBL: Minimal ANESTHESIA: General COMPLICATIONS: None OPERATIVE PROCEDURE: Patient was placed in the operating table in the supine position and placed under general anesthesia. An oblique incision was made in the right groin. Dissection down through the subcutaneous tissues took place using electrocautery. The external oblique fascia was incised using a scalpel. This opening was lengthened using the Metzenbaum scissors. The patient's hernia was able to be reduced at that time. The spermatic cord was encircled with a Lory drain. The structures were identified and preserved. Careful dissection revealed a very large indirect hernia sac. This was carefully dissected back to the internal inguinal ring where it was ligated using 3 separate 0 silk stick tie sutures. A 3" x 6" Prolene mesh was cut to fit on the exposed fascia. This was sutured to the pubic tubercle the folding edge of the inguinal ligament and the conjoined tendon. A slit was created in the mesh and the mesh was wrapped around the spermatic cord and sutured back to itself. The external oblique was then reapproximated using a running 2-0 Vicryl suture. The subcutaneous tissues were reapproximated using a 3-0 Vicryl sutures. The skin was closed using 4-0 Monocryl sutures. Steri-Strips and sterile dressings were then applied. DISPOSITION: Stable to recovery room
[2017-11-21] MEDS: traMADol 50 MG TAB PO SCH ×3 (15:03→22:42)
[2017-11-21] MEDS ORDERED: LATANOPROST 0.005% OPHTH DROPS 2.5 ML BTL BOTH EYES SCH (21:00)
[2017-11-22] MEDS: SODIUM CHLORIDE 0.9% 1,000 ML IV SCH (04:09)
[2017-11-22 07:26] LABS: Anisocytosis Moderate; HCT 37.9 % (39.0-53.0); HGB 11.9 gm/dL (13.0-17.5); Hypochromasia Marked; MCH 23.7 pg (25.0-35.0); MCHC 31.3 g/dL (31.0-37.0); MCV 75.7 fL (80.0-100.0); Mean Platelet Volume 8.2; Microcytosis Moderate; Platelet Count 208 k/uL (150-450); RBC 5.01 m/uL (4.30-5.90); RDW 20.6 % (11.5-15.5); WBC 8.3 k/uL (3.8-10.6)
[2017-11-22 07:42] VITALS: BP 138/61; PULSE 75; RESP 14; TEMP 97.6
[2017-11-22] MEDS ORDERED: FERROUS SULFATE 325 MG TAB PO SCH (07:45)
--- NOTE | 2017-11-22 07:46 | P.PN ---
Subjective Progress Note Date: 11/22/17 Principal diagnosis: abdominal pain Patient is a 77-year-old male with past medical history of glaucoma, cataracts, anemia, and psoriasis who presented to the emergency department with complaints of abdominal pain. In the ER he underwent an extensive evaluation. His initial vital signs are found to be within normal limits. CT of the abdomen and pelvis showed small bowel obstruction with transition point within a right scrotal hernia as well as bilateral basilar infiltrate. His laboratory analysis showed a slightly low protein and albumin at 3.3. He has microcytic but his hemoglobin is normal. Dr. Borges was contacted and he was admitted for incarcerated hernia. We have asked evaluate him for surgical risk stratification if he follows with Dr. Silva as an outpatient. He underwent a right inguinal hernia repair with mesh placement on 11/21/2017. He tolerated the procedure well. Patient seen and examined at bedside. Having pain only when up and walking. No BM since surgery. No nausea. Tolerating diet. NO shortness of breath. No other complaints currently. Objective - Vital Signs Vital signs: Vital Signs Temp 98.2 F 11/22/17 01:20 Pulse 66 11/22/17 01:20 Resp 16 11/22/17 01:20 BP 137/64 11/22/17 01:20 Pulse Ox 98 11/22/17 01:20 Intake & Output 11/21/17 11/22/17 11/22/17 18:59 06:59 18:59 Intake Total 1570 240 Output Total 10 Balance 1560 240 Intake: IV 1450 Oral 120 240 Output: Estimated Blood Loss 10 Other: Voiding Method Toilet # Voids 1 2 - Exam General: non toxic, no distress, appears at stated age Derm: warm, dry Head: atraumatic, normocephalic, symmetric Eyes: EOMI, no lid lag, anicteric sclera Mouth: no lip lesion, mucus membranes moist Cardiovascular: S1S2 reg, no murmur, positive posterior tibial pulse bilateral, Lungs: CTA bilateral, no rhonchi, no rales , no accessory muscle use Abdominal: soft, + tender to palpation RLQ, no guarding, no appreciable organomegaly Ext: no gross muscle atrophy, no edema, no contractures Neuro: CN II-XI grossly intact, no focal neuro deficits Psych: Alert, oriented, appropriate affect - Labs CBC & Chem 7: 11/22/17 06:54 11/20/17 21:51 Labs: Abnormal Lab Results - Last 24 Hours (Table) 11/22/17 Range/Units 06:54 Hgb 11.9 L (13.0-17.5) gm/dL Hct 37.9 L (39.0-53.0) % MCV 75.7 L (80.0-100.0) fL MCH 23.7 L (25.0-35.0) pg RDW 20.6 H (11.5-15.5) % Assessment and Plan Assessment: Incarcerated right inguinal hernia with resulting small bowel obstruction s/p repair - regular diet ordered today - IVF - Pain control Microcytic anemia, multifactorial - start iron supplementation continue for 30 days - follow CBC Dementia - safe and supportive environment - frequent reorientation Glaucoma - continue home eye drop Mild protein calorie malnutrition - dietitian eval after surgery. - will follow up on BMP results for today DVT prophylaxis: heparin Discussed with: Patient, nursing, family Anticipated discharge: home with home health A total of 25 minutes was spent on the care of this complex patient more than 50 % of the time was spent in counseling and care coordination.
[2017-11-22 07:47] LABS: Anion Gap 7 mmol/L; Blood Urea Nitrogen 9 mg/dL (9-20); Calcium 8.6 mg/dL (8.4-10.2); Carbon Dioxide 29 mmol/L (22-30); Chloride 101 mmol/L (98-107); Glucose 101 mg/dL (74-99); Magnesium 1.9 mg/dL (1.6-2.3); Phosphorus 3.4 mg/dL (2.5-4.5); Potassium 4.3 mmol/L (3.5-5.1); Sodium 137 mmol/L (137-145)
[2017-11-22] MEDS: HEPARIN SODIUM,PORCINE 5,000 UNIT/ML 1 ML VIAL SQ SCH (08:56)
[2017-11-22] MEDS: PANTOPRAZOLE 40 MG/10 ML VIAL IV SCH (08:57)
[2017-11-22] MEDS: traMADol 50 MG TAB PO SCH (08:57)
--- NOTE | 2017-11-22 12:02 | P.PN ---
Subjective Progress Note Date: 11/22/17 The patient is a 69-year-old gentleman status post open repair of incarcerated hernia. His family members at bedside. No reports of moderate pain. In fact, he is tolerating liquids. Labs reviewed and within normal limits for a white count. No reports of nausea or vomiting. Objective - Vital Signs Vital signs: Vital Signs Temp 97.6 F 11/22/17 07:40 Pulse 75 11/22/17 07:40 Resp 14 11/22/17 07:40 BP 138/61 11/22/17 07:40 Pulse Ox 97 11/22/17 07:40 Intake & Output 11/21/17 11/22/17 11/22/17 18:59 06:59 18:59 Intake Total 1570 240 720 Output Total 10 Balance 1560 240 720 Intake: IV 1450 Oral 120 240 720 Output: Estimated Blood Loss 10 Other: Voiding Method Toilet # Voids 1 2 - Exam GENERAL: Well developed and in no acute distress. Pleasant. HEENT: No sclera icterus. Extraocular movements grossly intact. Moist buccal mucosa. Head is atraumatic, normocephalic. Hears conversational speech. No nasal drainage. CHEST: Non-labored respirations and equal bilateral excursions. CARDIOVASCULAR: Palpable 2+ radial pulses. ABDOMEN: Soft, Nondistended. No peritonitis. No signs of infection or cellulitis along the right groin. Steri-Strips intact. MUSCULOSKELETAL: No clubbing, cyanosis or edema. NEUROLOGIC: No focal or lateralizing signs. PSYCH: Appropriate affect. Alert and oriented to person, - Labs CBC & Chem 7: 11/22/17 06:54 11/22/17 06:54 Labs: Abnormal Lab Results - Last 24 Hours (Table) 11/22/17 11/22/17 Range/Units 06:54 06:54 Hgb 11.9 L (13.0-17.5) gm/dL Hct 37.9 L (39.0-53.0) % MCV 75.7 L (80.0-100.0) fL MCH 23.7 L (25.0-35.0) pg RDW 20.6 H (11.5-15.5) % Glucose 101 H (74-99) mg/dL Assessment and Plan (1) Incarcerated hernia Current Visit: Yes Status: Acute Code(s): K46.0 - UNSP ABDOMINAL HERNIA WITH OBSTRUCTION, WITHOUT GANGRENE SNOMED Code(s): 14768871 Plan: 1. Clinically he is doing well. Whipple cell count normal. 2. He is tolerating liquids. Recommend liquid diet for 48 hours prior to advancing to regular diet and avoid risk of ileus and nausea and vomiting. 3. Patient is clinically stable for discharge. I am rounding on behalf of of Dr. Borges
--- NOTE | 2017-11-22 12:03 | P.DS ---
Providers Date of admission: 11/20/17 23:51 Expected date of discharge: 11/22/17 Attending physician: Tylor Borges Consults: 11/21/17 00:00 Consult Physician Stat Consulting Provider: Jacob Ross Consult Reason/Comments: Small Bowel Obstruction, Incarcerated hernia, Medical Mgmt Do you want consulting provider notified?: Yes Primary care physician: Altaf Silva - Discharge Diagnosis(es) (1) Incarcerated hernia Current Visit: Yes Status: Acute Hospital Course: The patient is a 69-year-old gentleman who came with bowel obstruction secondary to incarcerated right inguinal hernia. He status post repair. Pain is controlled. No reports of nausea and vomiting. White blood cell count now resolved. Procedures: Open right inguinal hernia repair Patient Condition at Discharge: Stable Plan - Discharge Summary Discharge Rx Participant: Yes New Discharge Prescriptions: New traMADol HCl [Ultram] 50 mg PO Q6H PRN #30 tab PRN Reason: Pain No Action Latanoprost [Xalatan 0.005%] 1 drop BOTH EYES HS Discharge Medication List Latanoprost [Xalatan 0.005%] 1 drop BOTH EYES HS 11/20/17 [History] traMADol HCl [Ultram] 50 mg PO Q6H PRN #30 tab 11/21/17 [Rx] Follow up Appointment(s)/Referral(s): Tylor Borges MD [Medical Doctor] - 2 Weeks Altaf Silva MD [Primary Care Provider] - 1-2 days Patient Instructions/Handouts: Open Herniorrhaphy (DC) Activity/Diet/Wound Care/Special Instructions: Continue with full liquid diet through Friday. May start regular diet on 2017. No lifting over 4 pounds in 4 weeks. May shower. No bath tub soaks. Wound care instructions reviewed. Discharge Disposition: HOME SELF-CARE
== END 2017-11-22 12:50 | disposition home or self-care (01) | DRG 351 ==
LOC: EC 20:35 → 3SUR 23:51
PROVIDERS: ADMIT Surgery; ATTEND Surgery
PROC: 0YU50JZ Supplement Right Inguinal Region with Synthetic Substitute, Open Approach (ICD-10-PCS; principal; 2017-11-21 12:55)
DX: K40.30 Unilateral inguinal hernia, with obstruction, without gangrene, not specified as recurrent (principal); E44.1 Mild protein-calorie malnutrition; J44.9 Chronic obstructive pulmonary disease, unspecified; D50.9 Iron deficiency anemia, unspecified; F03.90 Unspecified dementia, unspecified severity, without behavioral disturbance, psychotic disturbance, mood disturbance, and anxiety; L40.9 Psoriasis, unspecified; H40.9 Unspecified glaucoma; Z87.891 Personal history of nicotine dependence
CPT/HCPCS: 36415; 74177; 80048; 80053; 81003; 82150; 83605; 83690; 83735; 84100; 85025; 85027; 85610; 85730; 88302; 93005; 99285

== ENCOUNTER 2019-11-15 17:55 | Emergency (ER) | payer MEDICARE, BC ==
[2019-11-15 18:11] VITALS: TEMP 97.9
[2019-11-15] MEDS ORDERED: SODIUM CHLORIDE 0.9% 500 ML 500 ML IV ONE (18:15)
--- NOTE | 2019-11-15 18:22 | ED ---
General Adult HPI <Luís Conway - Last Filed: 11/15/19 20:01> - General Source: patient, RN notes reviewed, old records reviewed Mode of arrival: EMS <Josesito Comer - Last Filed: 11/15/19 20:59> - General Chief complaint: Abdominal Pain Stated complaint: Headache Time Seen by Provider: 11/15/19 17:59 - History of Present Illness Initial comments: 79-year-old male patient past history significant for dementia, small bowel obstruction which required surgery presents to ED with son. Son reportedly lives with patient. States that patient walked to the bathroom faster than normal which got his attention. He reports that he went to check on his father in the bathroom. States that his father was holding his abdomen appearing to be in discomfort. Patient then had a period of approximately 1 minute where he was somewhat unresponsive. Denies any falls. EMS was then called. Patient was transferred to Hospital. Upon initial evaluation son reports the patient is acting around his baseline right now. Patient is complaining of pain around his groin region. Denies any headaches, denies any other complaints. Systemic: Pt denies fatigue, fever/chills, rash. Pt denies weakness, night sweats, weight loss. Neuro: Pt denies headache, visual disturbances, syncope or pre-syncope. HEENT: Pt denies ocular discharge or irritation, otalgia, rhinorrhea, pharyngitis or notable lymphadenopathy. Cardiopulmonary: Pt denies chest pain, SOB, heart palpitations, dyspnea on exertion. Abdominal/GI: Pt denies abdominal pain, n/v/d. : Pt denies dysuria, burning w/ urination, frequency/urgency. Denies new onset urinary or bowel incontinence. MSK: Pt denies myalgia, loss of strength or function in extremities. Neuro: Pt denies new onset weakness, paresthesias. (Josesito Comer) - Related Data Home Medications Medication Instructions Recorded Confirmed Latanoprost [Xalatan 0.005%] 1 drop BOTH EYES HS 11/20/17 11/20/17 Previous Rx's Medication Instructions Recorded traMADol HCl [Ultram] 50 mg PO Q6H PRN #30 tab 11/21/17 Ferrous Sulfate [Iron (65 MG 325 mg PO BID-W/MEALS #60 tab 11/22/17 Elemental)] Allergies Allergy/AdvReac Type Severity Reaction Status Date / Time No Known Allergies Allergy Verified 11/20/17 22:09 Review of Systems ROS Other: All systems not noted in ROS Statement are negative. <Luís Conway - Last Filed: 11/15/19 20:01> ROS Other: All systems not noted in ROS Statement are negative. <Josesito Comer - Last Filed: 11/15/19 20:59> ROS Statement: Those systems with pertinent positive or pertinent negative responses have been documented in the HPI. Past Medical History Past Medical History: Memory Impairment Additional Past Medical History / Comment(s): psoriasis,anemia, glaucoma History of Any Multi-Drug Resistant Organisms: None Reported Past Surgical History: No Surgical Hx Reported Additional Past Surgical History / Comment(s): bilateral cataracts, colonoscopy Past Anesthesia/Blood Transfusion Reactions: No Reported Reaction Past Psychological History: No Psychological Hx Reported Smoking Status: Former smoker Past Alcohol Use History: None Reported Past Drug Use History: None Reported - Past Family History Mother Additional Family Medical History / Comment(s): from old age at 93 Father Additional Family Medical History / Comment(s): mouth cancer <Josesito Comer - Last Filed: 11/15/19 20:59> General Exam <Josesito Comer - Last Filed: 11/15/19 20:59> - General Exam Comments Initial Comments: Constitutional: NAD, Plesantly demented, Pt has pleasant affect. HEENT: NC/AT, trachea midline, neck supple, no lymphadenopathy. Posterior pharynx non erythematous, without exudates. External ears appear normal, without discharge. Mucous membranes moist. Eyes PERRLA, EOM intact. There is no scleral icterus. No pallor noted. Cardiopulmonary: RRR, no murmurs, rubs or gallops, no JVD noted. Lungs CTAB in anterior and posterior granados. No peripheral edema. Abdominal exam: Abdomen soft and non-distended. Abdomen non-tender to palpation in all 4 quadrants. Bowel sounds active in LLQ. No hepatosplenomegaly. No ecchym osis Neuro: CN II-XII intact. No nuchal rigidity. No raccon eyes, no park sign, no hemotympanum. No cervical spinal tenderness. MSK: No posterior calf tenderness bilaterally, homans sign negative bilaterally. Posterior tibialis and radial pulse +2 bilaterally. Sensation intact in upper and lower extremities. Full active ROM in upper and lower extremities, 5/5 stregnth. : External genital exam performed, no hernias, nontender, no high riding testicle, no blue dot sign, cremasteric reflex intact. no skin changes. (Josesito Comer) Course <ManLuís - Last Filed: 11/15/19 20:01> Vital Signs 11/15/19 11/15/19 18:03 19:07 Temperature 97.9 F Pulse Rate 64 68 Respiratory 18 18 Rate Blood Pressure 144/88 128/95 O2 Sat by Pulse 98 98 Oximetry - Reevaluation(s) Reevaluation #1: 11/15/19 20:01 PA supervision: I proceeded [id number] evaluation the patient I did discuss the findings with the patient family patient did present with a possible near syncopal episode and he was doubled over patient does have a history dementia. This episode lasted perhaps to 3 minutes and resolve the. He's been his normal self since then workup is thus been normal but is likely secondary to a ball spasm with a vasovagal episode. I do agree with the assessment and plan (Luís Conway) Medical Decision Making - Lab Data Result diagrams: 11/15/19 18:50 11/15/19 18:50 <Luís Conway - Last Filed: 11/15/19 20:01> - Lab Data Result diagrams: 11/15/19 18:50 11/15/19 18:50 <Josesito Comer - Last Filed: 11/15/19 20:59> - Medical Decision Making 79-year-old male patient past history significant for dementia, small bowel obstruction which required surgery presents to ED with son. Son reportedly lives with patient. States that patient walked to the bathroom faster than normal which got his attention. He reports that he went to check on his father in the bathroom. States that his father was holding his abdomen appearing to be in discomfort. Patient then had a period of approximately 1 minute where he was somewhat unresponsive. Denies any falls. EMS was then called. Patient was transferred to Hospital. Upon initial evaluation son reports the patient is acting around his baseline right now. Patient is complaining of pain around his groin region. Denies any headaches, denies any other complaints. Patient vital signs are stable, afebrile. Physical exam did not display acute pathology. Investigations are non-impressive. Troponin negative, EKG nonischemic. Urine negative. Brain CT did not display acute process. KUB displayed nonacute abdomen, cardiomegaly, no change. Chest x-ray is likely pulmonary fibrosis, no heart failure seen. Patient still at baseline per her son. Patient will be discharged to follow up with primary care provider or return to ER physician or symptoms. Case discussed and patient seen by Dr. Conway. (Josesito Comer) - Lab Data Lab Results 11/15/19 11/15/19 11/15/19 Range/Units 18:50 18:50 18:50 WBC 9.8 (3.8-10.6) k/uL RBC 5.07 (4.30-5.90) m/uL Hgb 15.8 (13.0-17.5) gm/dL Hct 48.0 (39.0-53.0) % MCV 94.7 (80.0-100.0) fL MCH 31.3 (25.0-35.0) pg MCHC 33.0 (31.0-37.0) g/dL RDW 12.4 (11.5-15.5) % Plt Count 191 (150-450) k/uL Neutrophils % 81 % Lymphocytes % 8 % Monocytes % 8 % Eosinophils % 2 % Basophils % 1 % Neutrophils # 7.9 H (1.3-7.7) k/uL Lymphocytes # 0.8 L (1.0-4.8) k/uL Monocytes # 0.7 (0-1.0) k/uL Eosinophils # 0.2 (0-0.7) k/uL Basophils # 0.1 (0-0.2) k/uL PT 9.9 (9.0-12.0) sec INR 0.9 (<1.2) APTT 24.8 (22.0-30.0) sec Sodium 138 (137-145) mmol/L Potassium 4.7 (3.5-5.1) mmol/L Chloride 106 (98-107) mmol/L Carbon Dioxide 26 (22-30) mmol/L Anion Gap 6 mmol/L BUN 18 (9-20) mg/dL Creatinine 0.92 (0.66-1.25) mg/dL Est GFR (CKD-EPI)AfAm >90 (>60 ml/min/1.73 sqM) Est GFR (CKD-EPI)NonAf 78 (>60 ml/min/1.73 sqM) Glucose 110 H (74-99) mg/dL Calcium 8.3 L (8.4-10.2) mg/dL Magnesium (1.6-2.3) mg/dL Total Bilirubin 0.4 (0.2-1.3) mg/dL AST 28 (17-59) U/L ALT 14 (4-49) U/L Alkaline Phosphatase 120 (38-126) U/L Troponin I (0.000-0.034) ng/mL Total Protein 6.6 (6.3-8.2) g/dL Albumin 3.1 L (3.5-5.0) g/dL Urine Color Urine Appearance (Clear) Urine pH (5.0-8.0) Ur Specific [place] (1.001-1.035) Urine Protein (Negative) Urine Glucose (UA) (Negative) Urine Ketones (Negative) Urine Blood (Negative) Urine Nitrite (Negative) Urine Bilirubin (Negative) Urine Urobilinogen (<2.0) mg/dL Ur Leukocyte Esterase (Negative) 11/15/19 11/15/19 11/15/19 Range/Units 18:50 18:50 20:37 WBC (3.8-10.6) k/uL RBC (4.30-5.90) m/uL Hgb (13.0-17.5) gm/dL Hct (39.0-53.0) % MCV (80.0-100.0) fL MCH (25.0-35.0) pg MCHC (31.0-37.0) g/dL RDW (11.5-15.5) % Plt Count (150-450) k/uL Neutrophils % % Lymphocytes % % Monocytes % % Eosinophils % % Basophils % % Neutrophils # (1.3-7.7) k/uL Lymphocytes # (1.0-4.8) k/uL Monocytes # (0-1.0) k/uL Eosinophils # (0-0.7) k/uL Basophils # (0-0.2) k/uL PT (9.0-12.0) sec INR (<1.2) APTT (22.0-30.0) sec Sodium (137-145) mmol/L Potassium (3.5-5.1) mmol/L Chloride (98-107) mmol/L Carbon Dioxide (22-30) mmol/L Anion Gap mmol/L BUN (9-20) mg/dL Creatinine (0.66-1.25) mg/dL Est GFR (CKD-EPI)AfAm (>60 ml/min/1.73 sqM) Est GFR (CKD-EPI)NonAf (>60 ml/min/1.73 sqM) Glucose (74-99) mg/dL Calcium (8.4-10.2) mg/dL Magnesium 2.3 (1.6-2.3) mg/dL Total Bilirubin (0.2-1.3) mg/dL AST (17-59) U/L ALT (4-49) U/L Alkaline Phosphatase (38-126) U/L Troponin I <0.012 (0.000-0.034) ng/mL Total Protein (6.3-8.2) g/dL Albumin (3.5-5.0) g/dL Urine Color Yellow Urine Appearance Clear (Clear) Urine pH 5.5 (5.0-8.0) Ur Specific [place] 1.018 (1.001-1.035) Urine Protein Negative (Negative) Urine Glucose (UA) Negative (Negative) Urine Ketones Negative (Negative) Urine Blood Negative (Negative) Urine Nitrite Negative (Negative) Urine Bilirubin Negative (Negative) Urine Urobilinogen <2.0 (<2.0) mg/dL Ur Leukocyte Esterase Negative (Negative) Disposition <Luís Conway - Last Filed: 11/15/19 20:01> Is patient prescribed a controlled substance at d/c from ED?: No <Josesito Comer - Last Filed: 11/15/19 20:59> Clinical Impression: Abdominal pain Disposition: HOME SELF-CARE Condition: Stable Instructions (If sedation given, give patient instructions): Abdominal Pain (ED) Additional Instructions: Follow-up with primary care provider tomorrow. Return to ER if condition worsens in any way. Referrals: Altaf Silva MD [Primary Care Provider] - 1-2 days
[2019-11-15 19:05] LABS: Basophils # (A) 0.1 k/uL (0-0.2); Basophils % (A) 1 %; Eosinophils # (A) 0.2 k/uL (0-0.7); Eosinophils % (A) 2 %; HGB 15.8 gm/dL (13.0-17.5); Lymphocytes # (A) 0.8 k/uL (1.0-4.8); Lymphocytes % (A) 8 %; MCH 31.3 pg (25.0-35.0); MCV 94.7 fL (80.0-100.0); Mean Platelet Volume 7.9; Monocytes # (A) 0.7 k/uL (0-1.0); Monocytes % (A) 8 %; Neutrophils # (A) 7.9 k/uL (1.3-7.7); Neutrophils % (A) 81 %; Platelet Count 191 k/uL (150-450); RBC 5.07 m/uL (4.30-5.90); RDW 12.4 % (11.5-15.5); WBC 9.8 k/uL (3.8-10.6)
[2019-11-15 19:13] LABS: ALT 14 U/L (4-49); AST 28 U/L (17-59); African American GFR (CKD) >90 (>60 ml/min/1.73 sqM); Albumin 3.1 g/dL (3.5-5.0); Alkaline Phosphatase 120 U/L (38-126); Anion Gap 6 mmol/L; Blood Urea Nitrogen 18 mg/dL (9-20); Calcium 8.3 mg/dL (8.4-10.2); Carbon Dioxide 26 mmol/L (22-30); Chloride 106 mmol/L (98-107); Glucose 110 mg/dL (74-99); INR 0.9 (<1.2); Non-African American GFR(CKD) 78 (>60 ml/min/1.73 sqM); Partial Thromboplastin Time 24.8 sec (22.0-30.0); Potassium 4.7 mmol/L (3.5-5.1); Prothrombin Time 9.9 sec (9.0-12.0); Sodium 138 mmol/L (137-145); Total Bilirubin 0.4 mg/dL (0.2-1.3); Total Protein 6.6 g/dL (6.3-8.2)
--- NOTE | 2019-11-15 19:31 | CT ---
EXAMINATION TYPE: CT brain wo con DATE OF EXAM: 11/15/2019 COMPARISON: None HISTORY: ams CT DLP: 1090.4 mGycm Automated exposure control for dose reduction was used. There is moderate diffuse cerebral cortical atrophy. There is no mass effect nor midline shift. There is no sign of intracranial hemorrhage. Calvarium is intact. IMPRESSION: Moderate diffuse atrophy. No acute intracranial abnormality.
--- NOTE | 2019-11-15 19:33 | XR ---
EXAMINATION TYPE: XR KUB DATE OF EXAM: 11/15/2019 COMPARISON: 05/17/2017 HISTORY: abdominal pain TECHNIQUE: Supine and upright views FINDINGS: Bowel gas pattern is normal. There is no sign of intestinal obstruction or pneumoperitoneum . Fecal pattern is normal. Heart is enlarged. There is no calcification over the kidneys. Calcified s plenic granulomata. IMPRESSION: Nonacute abdomen. Cardiomegaly. No change.
--- NOTE | 2019-11-15 19:34 | XR ---
EXAMINATION TYPE: XR chest 2V DATE OF EXAM: 11/15/2019 COMPARISON: NONE HISTORY: Abdominal pain TECHNIQUE: FINDINGS: There is coarsening of the lung markings. There is no heart failure. Heart size is fairly n ormal. Thoracic aorta is atheromatous. There are chest leads. Bony thorax is intact. IMPRESSION: Pulmonary fibrosis. No heart failure seen.
[2019-11-15 20:52] LABS: Appearance,Urine Clear (Clear); Bilirubin,Urine Negative (Negative); Blood,Urine Negative (Negative); Color,Urine Yellow; Glucose,Urine (UA) Negative (Negative); Ketones,Urine Negative (Negative); Leukocyte Esterase,Urine Negative (Negative); Nitrite,Urine Negative (Negative); PH, Urine 5.5 (5.0-8.0); Protein,Urine Negative (Negative); Specific Gravity,Urine 1.018 (1.001-1.035); Urobilinogen,Urine <2.0 mg/dL (<2.0)
[2019-11-15 21:17] VITALS: BP 140/69; PULSE 74; RESP 16
== END 2019-11-15 21:32 | disposition home or self-care (01) ==
LOC: EC 17:55
DX: R10.9 Unspecified abdominal pain (principal); I51.7 Cardiomegaly; Z87.891 Personal history of nicotine dependence; F03.90 Unspecified dementia, unspecified severity, without behavioral disturbance, psychotic disturbance, mood disturbance, and anxiety
CPT/HCPCS: 36415; 70450; 71046; 74018; 80053; 81003; 83735; 84484; 85025; 85610; 85730; 93005; 99285

== ENCOUNTER 2020-10-28 16:51 | Emergency (ER) | payer MEDICARE, BC ==
[2020-10-28 17:00] VITALS: RESP 20; TEMP 98.3
[2020-10-28] MEDS ORDERED: MORPHINE SULFATE 4 MG/ML SYRINGE IM STA (18:20)
--- NOTE | 2020-10-28 19:21 | CT ---
EXAMINATION TYPE: CT pelvis wo con DATE OF EXAM: 10/28/2020 COMPARISON: 11/20/2017 HISTORY: Fall with right hip and groin pain. CT DLP: 308.2 mGycm Automated exposure control for dose reduction was used. Images obtained from the iliac crests to the subtrochanteric femurs without contrast. There is no free fluid in the pelvis. Bladder distends smoothly. There is no evidence of a pelvic mas s. The proximal femurs are intact. Hip joints are anatomic. There is minimal hip joint space narrowing. There is minimal acetabular spurring. I see no evidence of a pelvic fracture. Sacroiliac joints are i ntact. There is 1 cm degenerative cyst in the right femoral neck. Unchanged. IMPRESSION: No evidence of pelvic fracture. Right hip joint is intact. Minimal osteoarthritis of the hip joints. There is apparent reduction of the large right side scrotal hernia compared to old exam.
--- NOTE | 2020-10-28 19:33 | XR ---
EXAMINATION TYPE: XR Hip RT and AP Pelvis DATE OF EXAM: 10/28/2020 COMPARISON: NONE HISTORY: Hip pain. Fall. TECHNIQUE: 3 views FINDINGS: Pelvic ring is intact. Proximal femur and hip joint appear intact. There is some ankylotic change in the sacroiliac joints. IMPRESSION: No acute abnormality of the pelvis and right hip. No fracture. There is evidence of chron ic sacroiliitis.
[2020-10-28] MEDS ORDERED: ACET/COD 300 MG/30 MG STARTER PACK 6 TAB BTL PO STA (20:10)
--- NOTE | 2020-10-28 20:14 | ED ---
Fall HPI - General Chief Complaint: Fall Stated Complaint: Fall Time Seen by Provider: 10/28/20 17:00 Source: patient, family Mode of arrival: wheelchair - History of Present Illness Initial Comments: Patient is an 80-year-old male with a history of dementia who presents to the emergency department after he had a trip and fall. Son is at bedside and reports a history. He states that he witnessed his father take a fall on a carpeted floor. He denies that he had a syncopal episode. The patient did not hit his head. He did land on his right hip and the patient has had hip pain since the fall. He was able to get up and ambulate. The son did not give him anything for the pain at home. When the patient continued to complain of right groin pain he decided to bring him into the emergency room for evaluation. History is difficult to obtain because of the patient's mental status. He does admit to groin pain. Denies any numbness, tingling or weakness in his legs. No other alleviating, precipitating or modifying factors - Related Data Home Medications Medication Instructions Recorded Confirmed Latanoprost [Xalatan 0.005%] 1 drop BOTH EYES HS 11/20/17 11/20/17 Previous Rx's Medication Instructions Recorded traMADol HCl [Ultram] 50 mg PO Q6H PRN #30 tab 11/21/17 Ferrous Sulfate [Iron (65 MG 325 mg PO BID-W/MEALS #60 tab 11/22/17 Elemental)] Allergies Allergy/AdvReac Type Severity Reaction Status Date / Time No Known Allergies Allergy Verified 10/28/20 17:00 Review of Systems ROS Statement: Those systems with pertinent positive or pertinent negative responses have been documented in the HPI. ROS Other: All systems not noted in ROS Statement are negative. Past Medical History Past Medical History: Dementia, Memory Impairment Additional Past Medical History / Comment(s): psoriasis,anemia, glaucoma History of Any Multi-Drug Resistant Organisms: None Reported Past Surgical History: Hernia Repair Additional Past Surgical History / Comment(s): bilateral cataracts, colonoscopy Past Anesthesia/Blood Transfusion Reactions: No Reported Reaction Past Psychological History: No Psychological Hx Reported Smoking Status: Never smoker Past Alcohol Use History: None Reported Past Drug Use History: None Reported - Past Family History Mother Additional Family Medical History / Comment(s): from old age at 93 Father Additional Family Medical History / Comment(s): mouth cancer General Exam Limitations: altered mental status General appearance: alert, in no apparent distress Head exam: Present: atraumatic, normocephalic, normal inspection Eye exam: Present: normal appearance, PERRL, EOMI. Absent: scleral icterus, conjunctival injection, periorbital swelling Neck exam: Present: normal inspection. Absent: tenderness, meningismus, lymphadenopathy Respiratory exam: Present: normal lung sounds bilaterally. Absent: respiratory distress, wheezes, rales, rhonchi, stridor Cardiovascular Exam: Present: regular rate, normal rhythm, normal heart sounds. Absent: systolic murmur, diastolic murmur, rubs, gallop, clicks GI/Abdominal exam: Present: soft, normal bowel sounds. Absent: distended, tenderness, guarding, rebound, rigid Extremities exam: Present: other (patient has tenderness to palpation of right groin. Patient has equal strength in the b/l le to include the hip flexors, knee extensors, ankle and great toe dorsiflexors. No shortening. 2+ DP and PT pulses. cap refill <2 seconds. intact sensation) Course Vital Signs 10/28/20 10/28/20 16:58 20:24 Temperature 98.3 F 98.3 F Pulse Rate 90 88 Respiratory 20 20 Rate Blood Pressure 141/80 132/63 O2 Sat by Pulse 93 L 95 Oximetry Medical Decision Making - Medical Decision Making Upon arrival patient is placed into room 29. A thorough history and physical exam was performed. He was given 4 mg of morphine IM. Patient was taking over for an x-ray of his right hip and a CT of his pelvis. X-ray and CT fails to demonstrate any acute fractures. The patient is reevaluated and has had improvement in his pain. Son feels comfortable taking the patient home at this time knowing that there are no acute fractures identified. I did recommend treatment with Motrin and Tylenol. Patient will be given a starter pack of Tylenol 3's however I did inform him that this has a higher chance of falling when taking this medication. Patient's son understood. Patient needs to follow up with his primary care doctor in 2-4 days. Return to the emergency room for any new or worsening symptoms. Patient discharged home in stable condition Disposition Clinical Impression: Fall, Right groin pain Disposition: HOME SELF-CARE Condition: Stable Instructions (If sedation given, give patient instructions): Fall Prevention for Older Adults (ED) Additional Instructions: Please follow up with your primary care doctor in 2-4 days. Return to the ED for any new or worsening symptoms. Is patient prescribed a controlled substance at d/c from ED?: No Referrals: Luis Enrique Buckley [Primary Care Provider] - 1-2 days Time of Disposition: 20:14
[2020-10-28 20:25] VITALS: BP 132/63; PULSE 88
== END 2020-10-28 20:38 | disposition home or self-care (01) ==
LOC: EC 16:51
DX: R10.31 Right lower quadrant pain (principal); M25.551 Pain in right hip; W01.0XXA Fall on same level from slipping, tripping and stumbling without subsequent striking against object, initial encounter
CPT/HCPCS: 99284; 96372; 73502; 72192; J2270